=== PATIENT | male | born 1945 | race Caucasian/White ===

== ENCOUNTER → 2018-09-15 | Outpatient (CLI) | payer MEDICARE, OTHER ==
[~2018-09-15] MED LIST: MMT17NA NS; SLMFT1E INH
--- NOTE | 2018-09-15 10:24 | Diagnostic Imaging Report ---
PROCEDURE: CT sinuses without contrast TECHNIQUE: Multiple contiguous axial images were obtained through the sinuses without the use of intravenous contrast. Coronal and sagittal reformations were then performed. INDICATION: Chronic congestion. FINDINGS: There is complete opacification of the frontal sinus. There is near complete opacification of ethmoid air cells. There is opacification of the left half of the sphenoid sinus. Near complete opacification of the right maxillary sinus is seen. There is air-fluid level with opacification of at least half of the left maxillary sinus. There are some areas of higher density noted within the areas of opacification in the maxillary sinuses. Abnormal soft tissue in the ostiomeatal complexes are seen. Nasal septum shows very slight deviation to the right. Mastoids are well aerated. IMPRESSION: Features consistent with pansinusitis. There are areas of higher density noted within the maxillary sinuses bilaterally. The possibility of atypical or fungal infection cannot be entirely excluded. No bony destructive changes are seen. Dictated by: Dictated on workstation # [id number]
== END ==
LOC: RAD 09:49
PROVIDERS: ATTEND Otolaryngology Otolaryngology/Facial Plastic Surgery
DX: J32.9 Chronic sinusitis, unspecified (principal); J34.89 Other specified disorders of nose and nasal sinuses
CPT/HCPCS: 70486

== ENCOUNTER 2018-10-10 11:47 | Outpatient (CLI) | payer MEDICARE, OTHER ==
[~2018-10-10] VITALS: Ht 188 cm; Wt 95.9 kg
[2018-10-10] MEDS ORDERED: WARF6TAB49 PO (11:57)
[2018-10-10] MEDS ORDERED: ENAL20TA PO (11:57)
[2018-10-10] MEDS ORDERED: FLUT1DIS26 IH (11:57)
[2018-10-10 12:00] VITALS: BP 166/88
[2018-10-10 12:27] LABS: BASOPHILS % (AUTO) 1 % (0-10); EOSINOPHILS # (AUTO) 1.3 10^3/uL (0.0-0.3); EOSINOPHILS % (AUTO) 21 % (0-10); HEMATOCRIT 48 % (40-54); HEMOGLOBIN 16.6 G/DL (13.3-17.7); LYMPHOCYTES # (AUTO) 1.3 X 10^3 (1.0-4.0); LYMPHOCYTES % (AUTO) 21 % (12-44); MEAN CORPUSCULAR HEMOGLOBIN 31 PG (25-34); MEAN CORPUSCULAR HGB CONC 35 G/DL (32-36); MEAN CORPUSCULAR VOLUME 90 FL (80-99); MEAN PLATELET VOLUME 10.5 FL (7.4-10.4); MONOCYTES # (AUTO) 0.6 X 10^3 (0.0-1.0); MONOCYTES % (AUTO) 9 % (0-12); NEUTROPHILS # (AUTO) 2.9 X 10^3 (1.8-7.8); NEUTROPHILS % (AUTO) 48 % (42-75); PLATELET COUNT 217 10^3/uL (130-400); RED BLOOD COUNT 5.29 10^6/uL (4.35-5.85); RED CELL DISTRIBUTION WIDTH 12.6 % (10.0-14.5); WHITE BLOOD COUNT 6.1 10^3/uL (4.3-11.0)
[2018-10-10 12:48] LABS: BUN/CREATININE RATIO 9; CALCIUM 9.7 MG/DL (8.5-10.1); CARBON DIOXIDE 23 MMOL/L (21-32); CHLORIDE 104 MMOL/L (98-107); CREATININE SERUM 1.15 MG/DL (0.60-1.30); GFR ESTIMATED > 60; GLUCOSE 97 MG/DL (70-105); POTASSIUM 4.5 MMOL/L (3.6-5.0); SODIUM 140 MMOL/L (135-145)
[2018-10-10 13:19] LABS: BAND NEUTROPHILS 1 %; BASOPHILS % (MANUAL) 0 %; EOSINOPHILS % (MANUAL) 19 %; LYMPHOCYTES % (MANUAL) 23 %; MONOCYTES % (MANUAL) 4 %; NEUTROPHILS % (MANUAL) 53 %
[2018-10-10 13:20] LABS: RBC MORPH NORMAL
--- NOTE | 2018-10-10 13:43 | Diagnostic Imaging Report ---
INDICATION: Evaluation prior to sinus surgery.. TECHNIQUE: Two view chest 2:33 PM CORRELATION STUDY: 05/15/2015 FINDINGS: The heart size, mediastinal configuration and pulmonary vasculature are stable with calcified right infrahilar lymph nodes. The lungs are somewhat hyperinflated but overall clear with no consolidating infiltrate. There is no significant pleural effusion or pneumothorax. Calcified granuloma posterior medial right lower lobe again demonstrated. Visualized osseous structures are unremarkable. IMPRESSION: 1. No radiographic evidence for acute abnormality of the chest. Dictated by: Dictated on workstation # [id number]
== END 2018-10-10 15:41 | disposition home or self-care (01) ==
LOC: PREOP 11:47
PROVIDERS: ATTEND Otolaryngology Otolaryngology/Facial Plastic Surgery
DX: Z01.810 Encounter for preprocedural cardiovascular examination (principal); Z01.811 Encounter for preprocedural respiratory examination; Z11.2 Encounter for screening for other bacterial diseases; J32.9 Chronic sinusitis, unspecified; J30.9 Allergic rhinitis, unspecified; J33.9 Nasal polyp, unspecified
CPT/HCPCS: 36415; 71046; 80048; 85007; 85027; 87081; 93005

== ENCOUNTER 2018-10-19 06:00 | Day surgery (SDC) | payer MEDICARE, OTHER ==
[~2018-10-19] VITALS: Ht 190.5 cm; Wt 95.9 kg
[~2018-10-19 06:00] MED LIST changes: +ENAL20TA PO; +FLUT1DIS26 IH; +WARF6TAB49 PO
[2018-10-19] MEDS ORDERED: AMPICILLIN/SULBACTAM INJECTION 1.5 GM in NS (IVPB) 100 ML IV ONE (06:15)
[2018-10-19] MEDS ORDERED: HYDROCORTISONE 100 MG/2 ML (Solu-CORTEF) VIAL IV ONE (06:15)
[2018-10-19 06:25] VITALS: BP 158/81
[2018-10-19] MEDS ORDERED: CATHETER FLUSH 10 ML SYR IV PRN (06:45)
[2018-10-19] MEDS: LACTATED RINGERS 1,000 ML IV PRN ×2 (06:45→08:19)
--- NOTE | 2018-10-19 06:47 | Progress Note-Pre Operative ---
Pre-Operative Progress Note H&P Reviewed The H&P was reviewed, patient examined and no changes noted. Date Seen by Provider: Oct 19, 2018 Time Seen by Provider: 06:40 Date H&P Reviewed: Oct 19, 2018 Time H&P Reviewed: 06:40 Pre-Operative Diagnosis: Bilat Chronic Sinusitis with Nasal Polyps BRISA COLE MD Oct 19, 2018 06:47
[2018-10-19] MEDS ORDERED: LIDOCAINE PF 2% 5 ML (XYLOCAINE) VIAL ONE (06:50)
[2018-10-19] MEDS ORDERED: ROCURONIUM 10 MG/ML 5 ML SYRINGE IV ONE (06:50)
[2018-10-19] MEDS ORDERED: DEXAMETHASONE 10 MG/ML (DECADRON) 1 ML VIAL ONE (06:50)
[2018-10-19] MEDS ORDERED: proPOfol 200 MG/20 ML (DIPRIVAN) VIAL IV ONE (06:50)
[2018-10-19] MEDS ORDERED: ONDANSETRON 4 MG/2 ML (SDV) Z0FRAN ONE (06:50)
[2018-10-19] MEDS ORDERED: MIDAZOLAM 2 MG/2 ML (VERSED) VIAL ONE (06:51)
[2018-10-19] MEDS ORDERED: fentaNYL INJECTION 100 MCG/2 ML AMP ONE (06:51)
[2018-10-19] MEDS ORDERED: SEVOFLURANE (ULTANE) 15 ML INHAL SOLN ONE ×2 (06:54→09:10)
[2018-10-19 07:02] LABS: INR 1.1 (0.8-1.4); PROTHROMBIN TIME PATIENT 14.5 SEC (12.2-14.7)
[2018-10-19] MEDS ORDERED: PHENYLEPHRINE 0.5% NASAL SPR (NEO-SYNEPHRINE) REG ONE (07:17)
[2018-10-19] MEDS ORDERED: COCAINE HCL 4% 2 ML SYR ONE (07:17)
[2018-10-19] MEDS ORDERED: BSS 15 ML ONE (07:17)
[2018-10-19] MEDS ORDERED: LIDOCAINE/EPI 1%-1:100,000 (XYLOCAINE) 20ML ONE (07:17)
[2018-10-19] MEDS ORDERED: GLYCOPYRROLATE 0.2 MG/ML (ROBINUL) 2 ML VIAL ONE (09:10)
[2018-10-19] MEDS ORDERED: NEOSTIGMINE 1 MG/ML 5 ML SYRINGE ONE (09:10)
[2018-10-19] MEDS ORDERED: HYDROmorphone 2 MG/ML VIAL (DILAUDID) ONE (09:17)
[2018-10-19] MEDS ORDERED: morphine INJ 10 MG/ML 1ML (SYR OR VIAL) ONE (09:18)
--- NOTE | 2018-10-19 09:18 | Progress Note-Post Operative ---
Post-Operative Progess Note Surgeon (s)/Emergency Services Dispatcher (s) Surgeon BRISA COLE MD Emergency Services Dispatcher n/a Pre-Operative Diagnosis Bilat Chronic Sinusitis with Nasal Polyps Post-Operative Diagnosis same Post-Op Procedure Note Date of Procedure: Oct 19, 2018 Name of Procedure Performed: Bilat ESs with REmoval of Nasal Polyps, Bilat Partial REd of Inf Turbinates Description & Findings Description and Findings: n/a Anesthesia Type get Estimated Blood Loss minimal Packing none. Specimen(s) collected/removed bilat choirnic sinus disesea and polyps BRISA COLE MD Oct 19, 2018 09:18
[2018-10-19] MEDS ORDERED: D5 1/2 NS W/KCL 20 MEQ/L 1,000 ML IV SCH (09:19)
[2018-10-19] MEDS ORDERED: PROMETHAZINE INJ 25 MG/ML (PHENERGAN) AMP IVP PRN (09:30)
[2018-10-19] MEDS ORDERED: HYDROcodone/APAP 5 MG/325 MG (LORTAB) TAB PO PRN (09:30)
[2018-10-19] MEDS ORDERED: MEPERIDINE (DEMEROL) INJ 50 MG/ML IVP ONE (09:30)
[2018-10-19] MEDS ORDERED: morphine INJ 10 MG/ML 1ML (SYR OR VIAL) IVP ONE (09:30)
[2018-10-19] MEDS ORDERED: ACETAMINOPHEN 325 MG TABLET PO PRN (09:30)
[2018-10-19] MEDS ORDERED: ONDANSETRON 4 MG/2 ML (SDV) Z0FRAN IVP PRN (09:30)
[2018-10-19] MEDS ORDERED: predniSONE 20 MG TAB PO ONE (09:30)
[2018-10-19] MEDS ORDERED: PROMETHAZINE INJ 25 MG/ML (PHENERGAN) AMP IVP ONE (09:30)
[2018-10-19 10:25] VITALS: BP 149/79
[2018-10-19 10:30] VITALS: BP 149/79
[2018-10-19] MEDS ORDERED: HYDR-3812 PO (10:38)
[2018-10-19] MEDS ORDERED: PRD20T PO (10:38)
[2018-10-19] MEDS ORDERED: AMOX-355 PO (10:38)
[2018-10-19 10:55] VITALS: BP 140/76
[2018-10-19 11:25] VITALS: BP 138/82
--- NOTE | 2018-10-19 13:23 | Anesthesia-General Post-Op ---
General Patient Condition Mental Status/LOC: Same as Preop Cardiovascular: Satisfactory Nausea/Vomiting: Absent Respiratory: Satisfactory Pain: Controlled Complications: Absent Post Op Complications Complications None Follow Up Care/Instructions Patient Instructions None needed. Anesthesia/Patient Condition Patient Condition Patient is doing well, no complaints, stable vital signs, no apparent adverse anesthesia problems. No complications reported per nursing. LY REDD CRNA Oct 19, 2018 13:23
== END 2018-10-19 11:40 | disposition home or self-care (01) ==
LOC: SDC 06:00
PROVIDERS: ATTEND Otolaryngology Otolaryngology/Facial Plastic Surgery
DX: J32.0 Chronic maxillary sinusitis (principal); J32.1 Chronic frontal sinusitis; J32.2 Chronic ethmoidal sinusitis; J32.3 Chronic sphenoidal sinusitis; J33.8 Other polyp of sinus; J34.3 Hypertrophy of nasal turbinates; I10 Essential (primary) hypertension; J44.9 Chronic obstructive pulmonary disease, unspecified; G47.33 Obstructive sleep apnea (adult) (pediatric); Z86.718 Personal history of other venous thrombosis and embolism; Z87.891 Personal history of nicotine dependence; Z79.01 Long term (current) use of anticoagulants; Z79.899 Other long term (current) drug therapy
CPT/HCPCS: 36415; 85610; 88304

== ENCOUNTER 2020-02-20 09:00 | Outpatient (CLI) | payer MEDICARE, OTHER ==
[~2020-02-20] VITALS: Ht 187 cm; Wt 90.4 kg
[~2020-02-20 09:00] MED LIST changes: +ACHD5005 PO; +AMOX-355 PO; +PRD20T PO
[2020-02-20] MEDS ORDERED: WARF6TAB49 PO (11:09)
[2020-02-20] MEDS ORDERED: ENAL20TA PO (11:09)
[2020-02-21] MEDS ORDERED: HYDR-4227 PO (08:46)
== END 2020-02-20 11:19 | disposition home or self-care (01) ==
LOC: PREOP 09:00
PROVIDERS: ATTEND Surgery
DX: Z01.818 Encounter for other preprocedural examination (principal)